=== PATIENT | male | born 1975 | race Caucasian/White ===

== ENCOUNTER 2025-08-16 19:58 | Emergency (ER) | payer BC ==
--- OUTSIDE RECORDS SUMMARY | 2025-08-16 20:02 | XMS REPORT | Continuity of Care Document ---
Author Name Unknown Address [address] [facility] [address] [place] [address] Organization [facility] [place] Address [address] [facility] [address] [place] [address] Care Team Providers Care Hull Drafter Name Role Phone MICHELLE Attending Clinician Unavailable Hakeem Sainz Attending Clinician [phone] MICHELLE Admitting Clinician Unavailable Payers Payer Name Policy Type Policy Number Effective Date Expirati on Date Source [place] [id number] 2017 00:00:00 Problems Condition Name Condition Details Condition Category Status Onset Date Resolution Date Last Treatment Date Treating Clinician Comments Source Chronic low back pain Chronic Low Back Pain Problem Active 03[facility]05 00:[facility] Vitamin D deficiency Vitamin D Deficiency Problem Active 03-12 00:00: 00 [place] [facility] Hypertrigl yceridemia Hypertrigl yceridemia Problem Active 03-05 00:00: 00 [place] [facility] Steatotic liver disease Steatotic Liver Disease Problem Active 03-07 00:00: 00 [place] [facility] Hepatomega ly Hepatomega ly Problem Active 03-07 00:00: 00 [place] [facility] Hyperchole sterolemia Hyperchole sterolemia Problem Active 02-20 00:00: 00 [place] [facility] Alcoholism Alcoholism Problem Active 02-20 00:00: 00 [place] [facility] Hypertensi ve disorder Hypertensi ve Disorder Problem [facility] Allergies, Adverse Reactions, Alerts Allergy Name Allergy Type Status Severity Reaction(s) Onset Date Inactive Date Treating Clinician Comments Source [place] INS Allergy to substanc e Active Severe Anaphylaxis [facility] Social History Smoking Status Start Date Stop Date Source Never Smoker [facility] Medications Ordered Medication Name Filled Medication Name Start Date Stop Date Current Medication? Ordering Clinician Indication Dosage Frequency Signature (SIG) Comments Components Source amlodipine 10 mg-benazepr il 20 mg capsule TAKE 1 CAPSULE BY MOUTH EVERY DAY amlodipine 10 mg-benazepr il 20 mg capsule TAKE 1 CAPSULE BY MOUTH EVERY DAY No 1capsul e(s) Q1D amlodipine 10 mg-benazep ril 20 mg capsule TAKE 1 CAPSULE BY MOUTH EVERY DAY [facility] atorvastati n 20 mg tablet TAKE 1 TABLET BY MOUTH EVERY DAY atorvastati n 20 mg tablet TAKE 1 TABLET BY MOUTH EVERY DAY No 1 Q1D atorvastat in 20 mg tablet TAKE 1 TABLET BY MOUTH EVERY DAY [facility] Vital Signs Vital Name Observation Time Observation Value Comments S shanta Body Weight 2025-06-16 00:00:00 2080 [oz_av] [facility] Height 2025-06-16 00:00:00 66 [in_i] [facility] BP Systolic 2025-06-16 00:00:00 128 mm[Hg] [facility] BP Diastolic 2025-06-16 00:00:00 80 mm[Hg] [facility] BMI (Body Mass Index) 2025-06-16 00:00:00 21 kg/m2 [facility] Height 2025-03-05 00:00:00 66 [in_i] [facility] Body Weight 2025-03-05 00:00:00 2096 [oz_av] [facility] BMI (Body Mass Index) 2025-03-05 00:00:00 21.1 kg/m2 [facility] BP Systolic 2025-03-05 00:00:00 125 mm[Hg] [facility] BP Diastolic 2025-03-05 00:00:00 82 mm[Hg] [facility] Height 2024-09-04 00:00:00 66 [in_i] [facility] Body Weight 2024-09-04 00:00:00 2096 [oz_av] [facility] BMI (Body Mass Index) 2024-09-04 00:00:00 21.1 kg/m2 [facility] BP Diastolic 2024-09-04 00:00:00 74 mm[Hg] [facility] BP Systolic 2024-09-04 00:00:00 126 mm[Hg] [facility] BP Systolic 2024-03-05 00:00:00 122 mm[Hg] [facility] BMI (Body Mass Index) 2024-03-05 00:00:00 20.5 kg/m2 [facility] Height 2024-03-05 00:00:00 66 [in_i] [facility] BP Diastolic 2024-03-05 00:00:00 76 mm[Hg] [facility] Body Weight 2024-03-05 00:00:00 2032 [oz_av] [facility] Height 2023-07-06 00:00:00 66 [in_i] [facility] BMI (Body Mass Index) 2023-07-06 00:00:00 21.1 kg/m2 [facility] BP Diastolic 2023-07-06 00:00:00 80 mm[Hg] [facility] BP Systolic 2023-07-06 00:00:00 128 mm[Hg] [facility] Body Weight 2023-07-06 00:00:00 2096 [oz_av] [facility] BP Diastolic 2023-06-01 00:00:00 88 mm[Hg] [facility] Height 2023-06-01 00:00:00 66 [in_i] [facility] BMI (Body Mass Index) 2023-06-01 00:00:00 21.1 kg/m2 [facility] BP Systolic 2023-06-01 00:00:00 144 mm[Hg] [facility] Body Weight 2023-06-01 00:00:00 2096 [oz_av] [facility] BP Diastolic 2023-03-02 00:00:00 72 mm[Hg] [facility] Height 2023-03-02 00:00:00 66 [in_i] [facility] BMI (Body Mass Index) 2023-03-02 00:00:00 21.4 kg/m2 [facility] BP Systolic 2023-03-02 00:00:00 128 mm[Hg] [facility] Body Weight 2023-03-02 00:00:00 2120 [oz_av] [facility] BP Diastolic 2022-09-01 00:00:00 82 mm[Hg] [facility] Height 2022-09-01 00:00:00 66 [in_i] [facility] BMI (Body Mass Index) 2022-09-01 00:00:00 21.3 kg/m2 [facility] BP Systolic 2022-09-01 00:00:00 140 mm[Hg] [facility] Body Weight 2022-09-01 00:00:00 2112 [oz_av] [facility] BP Diastolic 2022-03-10 00:00:00 80 mm[Hg] [facility] Height 2022-03-10 00:00:00 66 [in_i] [facility] BMI (Body Mass Index) 2022-03-10 00:00:00 20.3 kg/m2 [facility] BP Systolic 2022-03-10 00:00:00 124 mm[Hg] [facility] Body Weight 2022-03-10 00:00:00 2016 [oz_av] [facility] BP Diastolic 2022-02-20 00:00:00 98 mm[Hg] [facility] Height 2022-02-20 00:00:00 66 [in_i] [facility] BMI (Body Mass Index) 2022-02-20 00:00:00 20.2 kg/m2 [facility] BP Systolic 2022-02-20 00:00:00 164 mm[Hg] [facility] Body Weight 2022-02-20 00:00:00 1999 [oz_av] [facility] Procedures Procedure Date / Time Performed Performing Clinicia n Source XR, wrist + hand 2025-06-16 00:00:[address] [facility] US, liver 2022-02-20 00:00:00 [facility] Injection of Knee [facility] Osteoplasty of Clavicle [facility] Procedure on Ear [facility] Encounters Start Date/Time End Date/Time Encounter Type Admission Type Attending Clinicians Care Facility Care Department Encounter ID Source 2025-06-16 00:00:00 2025-06-16 00:00:00 IVETTE Meyer: [address], [place] [address] , Ph. [phone] [facility] [id number] [facility] 2025-03-05 00:00:00 2025-03-05 00:00:00 IVETTE Meyer: [address], [place] [address] , Ph. [phone] [facility] [id number] [facility] 2024-09-04 00:00:00 2024-09-04 00:00:00 IVETTE Meyer: [address], [place] [address] , Ph. [facility] [phone] [facility] 2024-03-05 00:00:00 2024-03-05 00:00:00 IVETTE Meyer: [address], [place] [address] , Ph. [facility], [facility], [facility]- [phone] [facility] 2023-07-06 00:00:00 2023-07-06 00:00:00 Hakeem Sainz, DO: [address], [place] [address] , Ph. [facility], DR. SAINZ [id number] [facility] 2023-06-01 00:00:00 2023-06-01 00:00:00 Hakeem Sainz, DO: [address], [place] [address] , Ph. [facility], DR. SAINZ [id number] [facility] 2023-03-02 00:00:00 2023-03-02 00:00:00 Hakeem Sainz, DO: [address], [place] [address] , Ph. [phone] [facility], DR. SAINZ [id number] [facility] 2022-09-01 00:00:00 2022-09-01 00:00:00 Hakeem Sainz, DO: [address], [place] [address] , Ph. [facility], DR. SAINZ [id number] [facility] 2022-03-10 00:00:00 2022-03-10 00:00:00 Outpatient Hakeem Sainz [facility] [id number] 2022-03-10 00:00:00 2022-03-10 00:00:00 Hakeem Sainz, DO: [address], [place] [address] , Ph. [phone] [facility], DR. SAINZ [id number] [facility] 2022-02-20 00:00:00 2022-02-20 00:00:00 Hakeem Sainz, DO: [address], [place] [address] , Ph. [facility], DR. SAINZ [id number] [facility] 2022-02-20 00:00:00 2022-02-20 00:00:00 Outpatient Hakeem Sainz [facility] [id number] Results Test Description Test Time Test Comments Results Result Co mments Source [facility] TSH [facility] - Serum or Plasma 2025-06-05 00:00:00* Test Item Value Reference Range Interpretation Comme nts Thyrotropin [Units/volume] i n Serum or Plasma by Detection limit <= 0.005 mIU/L (test code = 33125-3) 1.450 uIU/mL 0.450-4.500 Thyroxine (T4) free [Mass/volume] in Serum or Plasma (test code = 3024-7) 1.19 NG/dL 0.82-1.77 [facility] W Auto Differential panel - [id number] 00:00:00* Test Item Value Reference Range Interpretation Comme nts Leukocytes [#/volume] in Blo od by Automated count (test code = 6690-2) 4.2 x10e3/uL 3.4-10.8 Erythrocytes [#/volume] in Blood by Automated count (test code = 789-8) 4.22 x10e6/uL 4.14-5.80 Hemoglobin [Mass/volume] in Blood (test code = 718-7) 12.9 g/dL 13.0-17.7 L Hematocrit [Volume Fraction] of Blood by Automated count (test code = 4544-3) 39.5 % 37.5-51.0 MCV [Entitic mean volume] in Red Blood Cells by Automated count (test code = 787-2) 94 fL 79-97 MCH [Entitic mass] by Automa saad count (test code = 785-6) 30.6 pg 26.6-33.0 MCHC [Entitic Mass/volume] i n Red Blood Cells by Automated count (test code = 786-4) 32.7 g/dL 31.5-35.7 Erythrocyte distribution wid th [Ratio] by Automated count (test code = 788-0) 13.1 % 11.6-15.4 Platelets [#/volume] in Bloo d by Automated count (test code = 777-3) 238 x10e3/uL 150-450 Neutrophils/Leukocytes in Bl ood by Automated count (test code = 770-8) 65 % not estab. Lymphocytes/100 leukocytes i n Blood by Automated count (test code = 736-9) 23 % not estab. Monocytes/Leukocytes in Bloo d by Automated count (test code = 5905-5) 9 % not estab. Eosinophils/Leukocytes in Bl ood by Automated count (test code = 713-8) 2 % not estab. Basophils/100 leukocytes in Blood by Automated count (test code = 706-2) 1 % not estab. immature cells (test code = immature cells) JUTE BAG CLIPPER Neutrophils [#/volume] in Bl ood by Automated count (test code = 751-8) 2.8 x10e3/uL 1.4-7.0 Lymphocytes [#/volume] in Bl ood by Automated count (test code = 731-0) 1.0 x10e3/uL 0.7-3.1 Monocytes [#/volume] in Bloo d by Automated count (test code = 742-7) 0.4 x10e3/uL 0.1-0.9 Eosinophils [#/volume] in Bl ood by Automated count (test code = 711-2) 0.1 x10e3/uL 0.0-0.4 Basophils [#/volume] in Bloo d by Automated count (test code = 704-7) 0.0 x10e3/uL 0.0-0.2 Immature granulocytes/Leukocytes in Blood by Automated count (test code = 03854-9) 0 % not estab. Immature granulocytes [#/volume] in Blood by Automated count (test code = 48088-8) 0.0 x10e3/uL 0.0-0.1 Nucleated erythrocytes/Leukocytes [Ratio] in Blood by Automated count (test code = 26838-1) [employer]UTE [employer]AG [employer]IPPER Morphology [Interpretation] in Blood Narrative (test code = 09143-4) JUTE BAG CLIPPER [facility] 2000 panel - Serum or [id number] 00:00:00* Test Item Value Reference Range Interpretation Comme nts Glucose [Mass/volume] in Serum or Plasma (test code = 2345-7) 92 mg/dL 70-99 Urea nitrogen [Mass/volume] in Serum or Plasma (test code = 3094-0) 7 mg/dL 6-24 Creatinine [Mass/volume] in Serum or Plasma (test code = 2160-0) 0.76 mg/dL 0.76-1.27 Glomerular filtration rate [Volume Rate/Area] in Serum, Plasma or Blood by Creatinine-based formula (CKD-EPI 2020)/1.73 sq M (test code = 20080-1) 112 mL/min/1.73 >59 Urea nitrogen/Creatinine [Mass Ratio] in Serum or Plasma (test code = 3097-3) 9 9-20 Sodium [Moles/volume] in Serum or Plasma (test code = 2951-2) 135 mmol/L 134-144 Potassium [Moles/volume] in Serum or Plasma (test code = 2823-3) 4.2 mmol/L 3.5-5.2 Chloride [Moles/volume] in Serum or Plasma (test code = 2075-0) 97 mmol/L 96-106 Carbon dioxide, total [Moles/volume] in Serum or Plasma (test code = 2027-9) 21 mmol/L 20-29 Calcium [Mass/volume] in Serum or Plasma (test code = 72107-4) 9.6 mg/dL 8.7-10.2 Protein [Mass/volume] in Serum or Plasma (test code = 2885-2) 7.2 g/dL 6.0-8.5 Albumin [Mass/volume] in Serum or Plasma (test code = 1751-7) 4.9 g/dL 4.1-5.1 Globulin [Mass/volume] in Serum by calculation (test code = 86343-6) 2.3 g/dL 1.5-4.5 Bilirubin.total [Mass/volume ] in Serum or Plasma (test code = 1975-2) 0.5 mg/dL 0.0-1.2 Alkaline phosphatase [Enzymatic activity/volume] in Serum or Plasma (test code = 6768-6) 71 IU/L 44-121 Aspartate aminotransferase [Enzymatic activity/volume] in Serum or Plasma (test code = 1920-8) 18 IU/L 0-40 Alanine aminotransferase [Enzymatic activity/volume] in Serum or Plasma (test code = 1742-6) 18 IU/L 0-44 [facility] Reflex Culture panel - [id number] 00:00:00* Test Item Value Reference Range Interpretation Comme nts Specific gravity of Urine by Test strip (test code = 5811-5) 1.005 1.005-1.030 pH of Urine by Test strip (t est code = 5803-2) 6.5 5.0-7.5 Color of Urine (test code = 5778-6) Yellow yellow Appearance of Urine (test co de = 5767-9) Clear clear Leukocyte esterase [Presence ] in Urine by Test strip (test code = 5799-2) Negative negative Protein [Presence] in Urine by Test strip (test code = 64148-3) Negative negative/trace Glucose [Presence] in Urine by Test strip (test code = 16403-1) Negative negative Ketones [Presence] in Urine by Test strip (test code = 2514-8) Negative negative Hemoglobin [Presence] in Uri ne by Test strip (test code = 5794-3) Negative negative Bilirubin.total [Presence] i n Urine by Test strip (test code = 5770-3) Negative negative Urobilinogen [Mass/volume] i n Urine by Test strip (test code = 30275-0) 0.2 mg/dL 0.2-1.0 Nitrite [Presence] in Urine by Test strip (test code = 5802-4) Negative negative Microscopic observation [Identifier] in Urine sediment by Light microscopy (test code = 20205-9) See below: Leukocytes [#/area] in Urine sediment by Microscopy high power field (test code = 5821-4) None seen 0-5 Erythrocytes [#/area] in Uri ne sediment by Microscopy high power field (test code = 32117-0) None seen 0-2 Epithelial cells [#/area] in Urine sediment by Microscopy high power field (test code = 5787-7) None seen 0-10 Epithelial cells.renal [#/ar ea] in Urine sediment by Microscopy high power field (test code = 20831-5) [employer]IP[employer] Casts [Presence] in Urine se diment by Light microscopy (test code = 72023-4) None seen none seen Casts [Type] in Urine sedime nt by Light microscopy (test code = 69858-4) [employer]IPPER Unidentified crystals [Prese nce] in Urine sediment by Light microscopy (test code = 5783-6) [employer]IPPER Crystals [type] in Urine sed iment by Light microscopy (test code = 5782-8) [employer]IPPER Mucus [Presence] in Urine se diment by Light microscopy (test code = 8247-9) [employer]IPPER Bacteria [#/area] in Urine sediment by Microscopy high power field (test code = 5769-5) None seen none seen/few Yeast [#/area] in Urine sedi ment by Microscopy high power field (test code = 5822-2) [employer]IPPER Trichomonas vaginalis [Prese nce] in Urine sediment by Light microscopy (test code = 5813-1) [employer]IPPER Urine sediment comments by L ight microscopy Narrative (test code = 51067-8) JUTE [employer] CLIPPER urinalysis reflex (test code = urinalysis reflex) Comment [facility] 1996 panel - Serum or [id number] 00:00:00* Test Item Value Reference Range Interpretation Comme nts Cholesterol [Mass/volume] in Serum or Plasma (test code = 2093-3) 164 mg/dL 100-199 Triglyceride [Mass/volume] i n Serum or Plasma (test code = 2571-8) 92 mg/dL 0-149 Cholesterol in HDL [Mass/vol ume] in Serum or Plasma (test code = 2085-9) 63 mg/dL >39 Cholesterol in VLDL [Mass/vo lume] in Serum or Plasma by calculation (test code = 42540-4) 17 mg/dL 5-40 Cholesterol in LDL [Mass/vol ume] in Serum or Plasma by calculation (test code = 21571-3) 84 mg/dL 0-99 LDL calc comment: (test code = LDL calc comment:) JUTE BAG CLIPPER [facility]ie[facility]emoglobin A1c/Hemoglobin.total in Blood 2025-06-05 00:00:00* Test Item Value Reference Range Interpretation Comme nts Hemoglobin A1c/Hemoglobin.to yanely in Blood (test code = 4548-4) 5.3 % 4.8-5.6 [facility]state specific Ag [Mass/volume] in Serum or [id number] 00:00:00* Test Item Value Reference Range Interpretation Comme nts Prostate specific Ag [Mass/v olume] in Serum or Plasma (test code = 2857-1) 1.7 NG/mL 0.0-4.0 [facility]-Hydroxyvitamin D3+25-Hydroxyvitamin D2 [Mass/volume] in Serum or [id number] 00:00:00* Test Item Value Reference Range Interpretation Comme nts 25-Hydroxyvitamin D3+25-Hydroxyvitamin D2 [Mass/volume] in Serum or Plasma (test code = 07799-1) 60.4 NG/mL 30.0-100.0 [facility]-Hydroxyvitamin D3+25-Hydroxyvitamin D2 [Mass/volume] in Serum or [id number] 00:00:00* Test Item Value Reference Range Interpretation Comme nts 25-Hydroxyvitamin D3+25-Hydroxyvitamin D2 [Mass/volume] in Serum or Plasma (test code = 92027-6) 64.1 NG/mL 30.0-100.0 [facility] 2000 panel - Serum or [id number] 00:00:00* Test Item Value Reference Range Interpretation Comme nts Glucose [Mass/volume] in Ser um or Plasma (test code = 2345-7) 107 mg/dL 70-99 H Urea nitrogen [Mass/volume] in Serum or Plasma (test code = 3094-0) 14 mg/dL 6-24 Creatinine [Mass/volume] in Serum or Plasma (test code = 2160-0) 0.96 mg/dL 0.76-1.27 Glomerular filtration rate/1.73 sq M.predicted [Volume Rate/Area] in Serum, Plasma or Blood by Creatinine-based formula (CKD-EPI 2020) (test code = 56435-3) 99 mL/min/1.73 >59 Urea nitrogen/Creatinine [Ma ss Ratio] in Serum or Plasma (test code = 3097-3) 15 9-20 Sodium [Moles/volume] in Ser um or Plasma (test code = 2951-2) 139 mmol/L 134-144 Potassium [Moles/volume] in Serum or Plasma (test code = 2823-3) 4.8 mmol/L 3.5-5.2 Chloride [Moles/volume] in Serum or Plasma (test code = 2074-0) 102 mmol/L 96-106 Carbon dioxide, total [Moles/volume] in Serum or Plasma (test code = 2027-) 23 mmol/L 20-29 Calcium [Mass/volume] in Ser um or Plasma (test code = 28509-4) 9.4 mg/dL 8.7-10.2 Protein [Mass/volume] in Ser um or Plasma (test code = 2885-2) 6.8 g/dL 6.0-8.5 Albumin [Mass/volume] in Ser um or Plasma (test code = 1751-7) 5.0 g/dL 4.1-5.1 Globulin [Mass/volume] in Serum by calculation (test code = 78763-2) 1.8 g/dL 1.5-4.5 Albumin/Globulin [Mass Ratio ] in Serum or Plasma (test code = 1759-0) 2.8 1.2-2.2 H Bilirubin.total [Mass/volume ] in Serum or Plasma (test code = 1974-) 0.3 mg/dL 0.0-1.2 Alkaline phosphatase [Enzymatic activity/volume] in Serum or Plasma (test code = 6768-6) 67 IU/L 44-121 Aspartate aminotransferase [Enzymatic activity/volume] in Serum or Plasma (test code = 192-8) 15 IU/L 0-40 Alanine aminotransferase [Enzymatic activity/volume] in Serum or Plasma (test code = 174-6) 13 IU/L 0-44 [facility]
[2025-08-16] MEDS ORDERED: KETOROLAC 30 MG/ML INJ ONE (20:37)
--- NOTE | 2025-08-16 21:17 | RAD REPORT ---
EXAMINATION: UPPER EXTREMITY VENOUS UNILATE CLINICAL INDICATION: Male, 49 years old.Pain;Swelling TECHNIQUE: Multiplanar grayscale and color Doppler images were obtained in a upper extremity venous ultrasound. Spectral analysis of the Doppler waveforms were performed. COMPARISON: No prior exams FINDINGS: The internal jugular vein, subclavian vein, axillary vein, basilic vein, brachial vein, cephalic vein , radial vein, and ulnar vein were evaluated and patent. IMPRESSION: No evidence of deep venous thrombosis in the left upper extremity.
--- NOTE | 2025-08-16 21:22 | RAD REPORT ---
EXAM: Extremity Nonvascular Complete HISTORY: LT RING FINGER LUMP COMPARISON: None TECHNIQUE: Sonographic grayscale and color flow imaging of the left finger including the region of in terest as described by the patient. FINDINGS: Small hypoechoic structure in the region of the patient's palpable abnormality this measures approxim ately 11 mm x 2 mm. This is at the patient's left ring finger per the global project manager's note. IMPRESSION: Small nonspecific hypoechoic structure/fluid collection at the area of concern at the left ring finge rBishnu
--- NOTE | 2025-08-16 22:01 | RAD REPORT ---
EXAM: Hand Left 3 View HISTORY: Pain;Swelling COMPARISON: None FINDINGS: Bones: No acute fracture identified. Alignment:No significant malalignment. Degenerative changes:None significant. Other: n/a IMPRESSION: No acute osseous abnormality involving the imaged hand.
--- NOTE | 2025-08-16 22:28 | ER ---
Nurse's Notes [facility] Name: Cameron Page Age: 49 yrs Sex: Male : 1975 Arrival Date: 08/16/2025 Time: 19:58 Bed 14 Private MD: Diagnosis: Cellulitis of left finger-fourth finger Presentation: 08/16 20:24 Chief complaint: Patient states: started noticing some swelling to left ring finger me1 yesterday. Today it is swollen and black and blue, skin is intact. Denies injury. This evening started having some numbness to that finger. pain 1/10, "dull". Coronavirus screen: Vaccine status: Patient reports receiving the 2nd dose of the covid vaccine. Ebola Screen: No symptoms or risks identified at this time. Initial Sepsis Screen: Does the patient meet any 2 criteria? No. Patient's initial sepsis screen is negative. Does the patient have a suspected source of infection? No. Patient's initial sepsis screen is negative. Risk Assessment: Do you want to hurt yourself or someone else? Patient reports no desire to harm self or others. Onset of symptoms was August 15, 2025. 20:24 Method Of Arrival: Ambulatory me1 20:24 Acuity: ELANA 4 me1 Triage Assessment: 20:26 General: Appears in no apparent distress. Behavior is calm, cooperative, appropriate me1 for age. Pain: Complains of pain in dorsal aspect of middle phalanx of left ring finger and dorsal aspect of proximal phalanx of left ring finger Pain does not radiate. Pain currently is 1 out of 10 on a pain scale. Quality of pain is described as dull, numb, Pain began 1 day ago. Is continuous. EENT: No signs and/or symptoms were reported regarding the EENT system. Neuro: Level of Consciousness is awake, alert, obeys commands, Oriented to person, place, time, situation, Appropriate for age. Cardiovascular: Patient's skin is warm and dry. Respiratory: Airway is patent Respiratory effort is even, unlabored, Respiratory pattern is regular, symmetrical. GI: No signs and/or symptoms were reported involving the gastrointestinal system. : No signs and/or symptoms were reported regarding the genitourinary system. Derm: Bruising that is dark purple, on dorsal aspect of middle phalanx of left ring finger and dorsal aspect of proximal phalanx of left ring finger. Musculoskeletal: Swelling present in dorsal aspect of middle phalanx of left ring finger and dorsal aspect of proximal phalanx of left ring finger. Historical: - Allergies: 20:26 PENICILLINS; me1 - PMHx: 20:26 Hypertensive disorder; Hypercholesterolemia; me1 - PSHx: 20:26 repair collar bone left; me1 - Immunization history:: Adult Immunizations up to date. - Infectious Disease History:: Denies. - Social history:: Smoking status: Patient reports use of chewing tobacco. Screenin:35 [facility] ED Fall Risk Assessment (Adult) History of falling in the last 3 months, kj2 including since admission No falls in past 3 months (0 pts) Confusion or Disorientation No (0 pts) Intoxicated or Sedated No (0 pts) Impaired Gait No (0 pts) Mobility Assist Device Used No (0 pt) Altered Elimination No (0 pt) Score/Fall Risk Level 0 - 2 = Low Risk Maintained a safe environment, Hourly rounding (assess needs \\T\\ fall precautionary measures) done. Abuse screen: Denies threats or abuse. Denies injuries from another. Nutritional screening: No deficits noted. Tuberculosis screening: No symptoms or risk factors identified. Assessment: 20:35 General: Appears in no apparent distress. Behavior is cooperative. Pain: Complains of kj2 pain in left hand and dorsal aspect of proximal phalanx of left ring finger Pain currently is 6 out of 10 on a pain scale. Neuro: Level of Consciousness is awake, alert, obeys commands, Oriented to person, place, time, situation. Cardiovascular: Patient's skin is warm and dry. Respiratory: Airway is patent Respiratory effort is unlabored. GI: No signs and/or symptoms were reported involving the gastrointestinal system. : No signs and/or symptoms were reported regarding the genitourinary system. 21:17 Reassessment: Patient appears in no apparent distress at this time. Patient and/or kj2 family updated on plan of care and expected duration. Pain level reassessed. Patient is alert, oriented x 3, equal unlabored respirations, skin warm/dry/pink. 21:59 Reassessment: Patient appears in no apparent distress at this time. Patient and/or kj2 family updated on plan of care and expected duration. Pain level reassessed. Patient is alert, oriented x 3, equal unlabored respirations, skin warm/dry/pink. Vital Signs: 20:24 BP 137 / 99; Pulse 89; Resp 17; Temp 98; Pulse Ox 97% ; Weight 58.97 kg; Height 5 ft. 6 me1 in. ; Pain 1/10; 21:16 BP 134 / 94; Pulse 61; Resp 20; Pulse Ox 98% on R/A; kj2 22:00 BP 121 / 87; Pulse 65; Resp 20; Temp 98.2; Pulse Ox 100% on R/A; kj2 20:24 Body Mass Index 20.98 (58.97 kg, 167.64 cm) me1 20:24 Pain Scale: Adult ct1 ED Course: 20:01 Patient arrived in ED. mr 20:02 Arnulfo Nazario PA-C is PHCP. cp 20:02 Jaxon Nuñez MD is Attending Physician. cp 20:26 Triage completed. me1 20:26 Arm band placed on Patient placed in an exam room. me1 20:28 Adamaris Ferguson, DARYN is Primary Nurse. kj2 20:35 Patient has correct armband on for positive identification. Bed in low position. Call kj2 light in reach. Provided Education on: call light. 21:12 UPPER EXTREMITY VENOUS UNILATE In Process Unspecified. EDMS 21:12 Extremity Nonvascular Complete In Process Unspecified. EDMS 21:58 XRAY Hand LEFT 3 View In Process Unspecified. EDMS 22:32 Patient did not have IV access during this emergency room visit. kj2 22:32 No provider procedures requiring assistance completed. kj2 Administered Medications: 20:41 Drug: Ketorolac IM 30 mg IM once Route: IM; Site: left deltoid; kj2 22:32 Follow up: Response: No adverse reaction kj2 22:32 Drug: Doxycycline PO 100 mg PO once Route: PO; kj2 22:32 Follow up: Response: Medication administered at discharge. kj2 Medication: 20:47 VIS not applicable for this client. kj2 Outcome: 22:28 Discharge ordered by . cp 22:32 Discharged to home ambulatory, kj2 22:32 Condition: stable 22:32 Discharge instructions given to patient, Instructed on discharge instructions, follow up and referral plans. Demonstrated understanding of instructions, follow-up care, 22:35 Patient left the ED. kj2 Signatures: Dispatcher [employer] EDMS Taylor Galloway, Reg Reg mr Arnulfo Nazario, MUKESHC Nargis Rene cp RN RN me1 Adamaris Ferguson RN RN kj2 Corrections: (The following items were deleted from the chart) 22:33 22:00 BP 121 / 87; Pulse 65bpm; Resp 20bpm; Pulse Ox 100% RA; kj2 kj2
--- NOTE | 2025-08-16 22:29 | EDPHYS ---
Physician Documentation [facility] Name: Cameron Page Age: 49 yrs Sex: Male : 1975 Arrival Date: 08/16/2025 Time: 19:58 Bed 14 Private MD: ED Physician Jaxon Nuñez HPI: 08/16 20:30 This 49 yrs old Male presents to ER via Ambulatory with complaints of Finger swelling. cp 20:30 The patient or guardian reports swelling, tenderness. The complaints affect the left cp fourth finger. 20:30 Context: possible insect bite. Onset: The symptoms/episode began/occurred yesterday. cp Associated signs and symptoms: Pertinent negatives: cyanosis distally, fever, tingling distally. Severity of symptoms: in the emergency department the symptoms are unchanged. Historical: - Allergies: 20:26 PENICILLINS; me1 - PMHx: 20:26 Hypertensive disorder; Hypercholesterolemia; me1 - PSHx: 20:26 repair collar bone left; me1 - Immunization history:: Adult Immunizations up to date. - Infectious Disease History:: Denies. - Social history:: Smoking status: Patient reports use of chewing tobacco. ROS: 20:35 MS/extremity: Positive for swelling, tenderness, of the left fourth finger, Negative cp for injury, 20:35 Constitutional: Negative for body aches, chills, fever, cp 20:35 All other systems are negative, Exam: 20:35 Head/Face: Normocephalic, atraumatic. cp 20:35 Constitutional: The patient appears in no acute distress, alert, awake, comfortable, non-toxic, well developed, well nourished, 20:35 Chest/axilla: Inspection: normal, 20:35 Cardiovascular: Rate: normal, Rhythm: regular, 20:35 Respiratory: the patient does not display signs of respiratory distress, Respirations: normal, no use of accessory muscles, no retractions, labored breathing, is not present, Breath sounds: are clear throughout, no decreased breath sounds, 20:35 Abdomen/GI: Inspection: abdomen appears normal, 20:35 Musculoskeletal/extremity: Extremities: noted in the left hand: fourth finger appears with mild swelling of proximal phalanx, mild tenderness of dorsal side proximal phalanx, no erythema, no open wounds, brisk cap refill, full AROM, reports mild tingling, Vital Signs: 20:24 BP 137 / 99; Pulse 89; Resp 17; Temp 98; Pulse Ox 97% ; Weight 58.97 kg; Height 5 ft. 6 me1 in. ; Pain /10; 21:16 BP 134 / 94; Pulse 61; Resp 20; Pulse Ox 98% on R/A; kj2 22:00 BP 121 / 87; Pulse 65; Resp 20; Temp 98.2; Pulse Ox 100% on R/A; kj2 20:24 Body Mass Index 20.98 (58.97 kg, 167.64 cm) me1 20:24 Pain Scale: Adult me1 MDM: 20:21 Medical Screening Exam initiated cp 22:28 Data reviewed: vital signs, nurses notes, radiologic studies, plain films, ultrasound, cp and as a result, I will discharge patient. 22:28 Differential diagnosis: dislocation, closed fracture, contusion, cellulitis, localized cp allergic reaction, abscess. I considered the following discharge prescriptions or medication management in the emergency department Medications were administered in the Emergency Department. See MAR. Counseling: I had a detailed discussion with the patient and/or guardian regarding the historical points, exam findings, and any diagnostic results supporting the discharge/admit diagnosis, radiology results, to return to the emergency department if symptoms worsen or persist or if there are any questions or concerns that arise at home. Response to treatment: the patient's symptoms have mildly improved after treatment, and as a result, I will discharge patient. 08/16 20:27 Order name: XRAY Hand LEFT 3 View; Complete Time: 22:14 cp 08/16 22:14 Interpretation: Report reviewed. cp 08/16 20:31 Order name: UPPER EXTREMITY VENOUS UNILATE; Complete Time: 22:14 EDMS 08/16 22:14 Interpretation: Report reviewed. cp 08/16 21:12 Order name: Extremity Nonvascular Complete; Complete Time: 22:14 EDMS Administered Medications: 20:41 Drug: Ketorolac IM 30 mg IM once Route: IM; Site: left deltoid; kj2 22:32 Follow up: Response: No adverse reaction kj2 22:32 Drug: Doxycycline PO 100 mg PO once Route: PO; kj2 22:32 Follow up: Response: Medication administered at discharge. kj2 Disposition: 08/17 18:01 Chart complete. cp 19:32 Co-signature as Attending Physician, Jaxon Nuñez MD I agree with the assessment sp4 and plan of care. I reviewed the patient's care provided by the Advanced Practice Provider and agree with the diagnosis and treatment plan. Disposition Summary: 08/16/25 22:28 Discharge Ordered Notes: Location: Home cp Problem: new cp Symptoms: have improved cp Condition: Stable cp Diagnosis - Cellulitis of left finger - fourth finger cp Followup: cp - With: Private Physician - When: 2 - 3 days - Reason: Recheck today's complaints Discharge Instructions: - Discharge Summary Sheet cp - Cellulitis, Adult cp Forms: - Medication Reconciliation Form cp - Antibiotic Education cp - Prescription Opioid Use cp - Patient Portal Instructions cp - Leadership Thank You Letter cp Prescriptions: - Ibuprofen 800 mg Oral Tablet - take 1 tablet ORAL route every 8 hours As needed take with food; 30 tablet; cp Refills: 0, Product Selection Permitted - Doxycycline Hyclate 100 mg Oral Tablet - take 1 tablet ORAL route every 12 hours; 20 tablet; Refills: 0, Product cp Selection Permitted Signatures: Dispatcher [employer] EDOR Arnulfo Nazario, PA-C PA-C cp Jaxon Nuñez MD MD sp4 Nargis Billingsley RN RN me1 Adamaris Ferguson, DARYN RN kj2 Corrections: (The following items were deleted from the chart) 08/16 20:29 20:27 Extremity Venous Uni [email or web address] ordered. EDOR EDMS 08/17 17:58 17:57 MS/extremity: Positive for swelling, tenderness, of the left fourth finger, cp cp
[2025-08-16] MEDS ORDERED: DOXYCYCLINE 100 MG CAP PO ONE (22:30)
[2025-08-16 22:54] VITALS: BP 121/87; TEMP 98.2; O2SAT 100
== END 2025-08-16 22:35 | disposition home or self-care (01) ==
LOC: ER 19:58
DX: L03.012 Cellulitis of left finger (principal); F17.220 Nicotine dependence, chewing tobacco, uncomplicated
CPT/HCPCS: 73130; 93971; 76881; 96372; 99284; J1885